=== PATIENT | male | born 1990 | race African-American/Black ===

== ENCOUNTER 2019-05-22 02:51 | Emergency (ER) | payer SELFPAY ==
[~2019-05-22] VITALS: Ht 170.2 cm; Wt 105.0 kg
[2019-05-22 06:49] VITALS: BP 132/70
== END 2019-05-22 06:51 | disposition home or self-care (01) ==
LOC: ER 02:51
DX: H53.8 Other visual disturbances (principal); F12.10 Cannabis abuse, uncomplicated
CPT/HCPCS: 99284